=== PATIENT | male | born 1980 | race Caucasian/White ===

== ENCOUNTER 2017-03-05 22:10 | Emergency (ER) | payer OTHER ==
[~2017-03-05] VITALS: Ht 180.3 cm; Wt 90.7 kg
[2017-03-05 22:20] VITALS: TEMP 36.7; Ht 180.3 cm; Wt 90.7 kg
[2017-03-06 01:40] VITALS: BP 121/88; PULSE 88; O2SAT 99
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
== END 2017-03-06 01:41 | disposition home or self-care (01) ==
LOC: C.EDB 22:12 → C.EDC 03-06 01:41
DX: T74.11XA Adult physical abuse, confirmed, initial encounter (principal); T14.8 Other injury of unspecified body region; Y04.2XXA Assault by strike against or bumped into by another person, initial encounter; K81.1 Chronic cholecystitis; Z83.3 Family history of diabetes mellitus; Z82.49 Family history of ischemic heart disease and other diseases of the circulatory system